=== PATIENT | male | born 1955 | race Caucasian/White ===

== ENCOUNTER 2021-10-16 14:43 | Emergency (ER) | payer MEDICARE, OTHER | END 2021-10-16 16:15 | disposition home or self-care (01) | LOC: KA.ED 14:43 | DX: S50.01XA Contusion of right elbow, initial encounter (principal); M25.421 Effusion, right elbow; Z79.899 Other long term (current) drug therapy; W18.30XA Fall on same level, unspecified, initial encounter | CPT/HCPCS: 73080-RT; 99283-25; 99284 ==